=== PATIENT | male | born 1940 | race Caucasian/White ===

== ENCOUNTER 2018-12-24 09:22 | Outpatient (CLI) | payer MEDICARE ==
[2018-12-24 10:54] LABS: Basophils % (Auto) 0.5 % (0.0-1.8); Eosinophils # (Auto) 0.7 K/mm3 (0.0-0.4); Eosinophils % (Auto) 10.8 % (0.0-4.3); Hematocrit 47.6 % (35.5-45.6); Hemoglobin 16.4 gm/dl (11.8-15.2); Lymphocytes # (Auto) 1.6 K/mm3 (1.2-5.4); Lymphocytes % (Auto) 25.1 % (13.4-35.0); Mean Corpuscular HGB Conc 35 % (32-34); Mean Corpuscular Volume 97 fl (84-94); Monocytes # (Auto) 0.6 K/mm3 (0.0-0.8); Monocytes % (Auto) 8.9 % (0.0-7.3); Platelet Count 134 K/mm3 (140-440); Red Cell Distribution Width 12.9 % (13.2-15.2)
[2018-12-24 11:29] LABS: Albumin 4.5 g/dL (3.9-5); Calcium 9.5 mg/dL (8.4-10.2)
== END 2018-12-24 09:23 | disposition home or self-care (01) ==
LOC: LAB 09:22
PROVIDERS: ATTEND Internal Medicine
DX: E11.9 Type 2 diabetes mellitus without complications (principal); E78.5 Hyperlipidemia, unspecified; I10 Essential (primary) hypertension; D69.6 Thrombocytopenia, unspecified
CPT/HCPCS: 36415; 80053; 83036; 85025

== ENCOUNTER 2019-04-09 09:26 | Outpatient (CLI) | payer MEDICARE ==
[2019-04-09 11:41] LABS: Chol/HDL Ratio 3.15 %
[2019-04-12 17:15] LABS: Vitamin D, 25-OH, D2 <4 ng/mL
== END 2019-04-09 09:27 | disposition home or self-care (01) ==
LOC: LAB 09:26
PROVIDERS: ATTEND Internal Medicine
DX: E11.22 Type 2 diabetes mellitus with diabetic chronic kidney disease (principal); N18.2 Chronic kidney disease, stage 2 (mild); Z13.21 Encounter for screening for nutritional disorder; E78.2 Mixed hyperlipidemia
CPT/HCPCS: 36415; 80061; 82306; 82607; 83036; 84443

== ENCOUNTER 2019-08-27 09:05 | Outpatient (CLI) | payer MEDICARE ==
[2019-08-27 11:11] LABS: Chol/HDL Ratio 2.88 %
== END 2019-08-27 09:06 | disposition home or self-care (01) ==
LOC: LAB 09:05
PROVIDERS: ATTEND Internal Medicine
DX: E78.5 Hyperlipidemia, unspecified (principal); E87.5 Hyperkalemia; E11.9 Type 2 diabetes mellitus without complications
CPT/HCPCS: 36415; 80061; 83036; 84132